=== PATIENT | female | born 1980 | race Caucasian/White ===

== ENCOUNTER 2017-02-04 09:55 | Emergency (ER) | payer MEDICAID ==
[~2017-02-04] VITALS: Ht 152.4 cm; Wt 52.2 kg
[2017-02-04] MEDS ORDERED: [UNRECOGNIZED DRUG - REMARK] (10:14)
[2017-02-04] MEDS ORDERED: [UNRECOGNIZED DRUG - REMARK] (10:14)
--- NOTE | 2017-02-04 10:55 | NUR ---
Pt c/o n/v x 3 over last 3 days as well as STEARNS, 02/14, along both eyebrows. LS = clear. Pt denies SOB, cough, CP, dizziness, no other complaints, no distress noted.
--- NOTE | 2017-02-04 11:46 | NUR ---
Pt did not want to stay to see doctordarryl. aware
== END 2017-02-04 11:48 | disposition left against medical advice (07) ==
LOC: ER 09:55
DX: Z53.21 Procedure and treatment not carried out due to patient leaving prior to being seen by health care provider (principal)
CPT/HCPCS: 87400

== ENCOUNTER 2017-02-26 08:37 | Emergency (ER) | payer MEDICAID ==
[~2017-02-26] VITALS: Ht 152.4 cm; Wt 52.2 kg
[~2017-02-26 08:37] MED LIST: [UNRECOGNIZED DRUG - REMARK]; [UNRECOGNIZED DRUG - REMARK]
[2017-02-26] MEDS ORDERED: IPRATROPIUM BROMIDE 0.5 MG/2.5 ML NEBU NEB ONE (09:15)
[2017-02-26] MEDS ORDERED: predniSONE 10 MG TABLET PO ONE (09:15)
[2017-02-26] MEDS ORDERED: ALBUTEROL SULFATE 2.5 MG/3 ML NEBU NEB ONE (09:15)
[2017-02-26] MEDS ORDERED: predniSONE 10 MG TABLET ONE (09:29)
[2017-02-26] MEDS ORDERED: predniSONE 50 MG TABLET ONE (09:29)
[2017-02-26] MEDS ORDERED: ALBUTEROL SULFATE 2.5 MG/3 ML NEBU ONE (09:31)
[2017-02-26] MEDS ORDERED: IPRATROPIUM BROMIDE 0.5 MG/2.5 ML NEBU ONE (09:32)
[2017-02-26 09:53] LABS: BASOPHILS % (AUTO) 0.6 % (0.0-2.0); EOSINOPHILS # (AUTO) 0.1 K/uL (0.0-0.7); EOSINOPHILS % (AUTO) 1.7 % (0.0-7.0); HEMATOCRIT 38.8 % (37-47); HEMOGLOBIN 12.6 G/DL (12.0-16.0); LYMPHOCYTES # (AUTO) 1.5 K/UL (0.8-4.8); LYMPHOCYTES % (AUTO) 21.2 % (20.5-51.5); MEAN CORPUSCULAR HEMOGLOBIN 29.6 UUG (27.0-31.0); MEAN CORPUSCULAR HGB CONC 32 g/dL (32.0-37.0); MEAN CORPUSCULAR VOLUME 91.5 FL (81.0-99.0); MONOCYTES # (AUTO) 0.4 K/UL (0.1-1.30); MONOCYTES % (AUTO) 5.9 % (0.0-11.0); NEUTROPHILS # (AUTO) 5.2 K/UL (1.8-8.9); NEUTROPHILS % (AUTO) 70.6 % (38.5-71.5); PLATELET COUNT (AUTO) 284 K/UL (150-450); RED BLOOD CELL COUNT(AUTO) 4.24 MIL/UL (4.2-5.4); WHITE BLOOD COUNT (AUTO) 7.2 K/UL (4.0-11.2)
[2017-02-26 09:58] LABS: CREATININE 0.7 mg/dL (0.6-1.3); POTASSIUM 4.1 mmol/L (3.5-5.1)
[2017-02-26 10:04] LABS: BILIRUBIN,DIRECT 0.1 mg/dL (0.0-0.2); BILIRUBIN,TOTAL 0.3 mg/dL (0.2-1.0); TOTAL PROTEIN, SERUM 7.7 g/dL (6.4-8.2)
--- NOTE | 2017-02-26 10:29 | NUR ---
Patient discharged to home in stable conditon. Written and verbal after care instructions given. Patient verbalizes understanding of instructions. Stressed follow up with pmd or return to ER for worsening s/s.
== END 2017-02-26 10:31 | disposition home or self-care (01) ==
LOC: ER 08:37
DX: J45.909 Unspecified asthma, uncomplicated (principal)
CPT/HCPCS: 36415; 70030-TC; 70360; 71010; 83605; 84703; 85025; 87040; A4663; J3590; J7512

== ENCOUNTER 2017-08-01 09:29 | Emergency (ER) | payer OTHER ==
[~2017-08-01] VITALS: Ht 160 cm; Wt 52.2 kg
[2017-08-01] MEDS ORDERED: AZITHROMYCIN 250 MG TABLET PO ONE (09:52)
[2017-08-01] MEDS ORDERED: GUAIFENESIN/CODEINE 5 ML LIQUID UDC PO ONE (09:52)
[2017-08-01] MEDS ORDERED: predniSONE 20 MG TABLET PO ONE (10:00)
--- NOTE | 2017-08-01 10:12 | NUR ---
pt d/c'd home, aciu/rx x3 given. pt ambulated w/o diff,took all belongings.
[2017-08-01 10:13] VITALS: BP 111/72
[2017-08-01] MEDS ORDERED: predniSONE 20 MG TABLET ONE (10:17)
[2017-08-01] MEDS ORDERED: GUAIFENESIN/CODEINE 5 ML LIQUID UDC ONE (10:17)
[2017-08-01] MEDS ORDERED: AZITHROMYCIN 250 MG TABLET ONE (10:17)
== END 2017-08-01 10:13 | disposition home or self-care (01) ==
LOC: ER 09:29
DX: J20.9 Acute bronchitis, unspecified (principal); J45.909 Unspecified asthma, uncomplicated
CPT/HCPCS: 99284; A4663; J7512; Q0144